=== PATIENT | female | born 1960 | race African-American/Black ===

== ENCOUNTER → 2017-01-02 | Outpatient (CLI) | payer OTHER ==
[2015-07-19 07:26] VITALS: BP 123/75
[~2017-01-02] MED LIST: ESCITALOPRAM OX10 MG PO; ESCITALOPRAM OX20 MG PO; GADOBUTROL 7.5 MMOL/7.5 ML VIAL IV ONE; LANS15CA5 PO; LANS30CA66 PO; NAPR-677 PO; NAPR500T3 PO; PANT40TA3 PO; POTA10TA12 PO; TRIA1CAP3 PO
--- NOTE | 2017-01-02 10:25 | RAD ---
BRAIN WO/W CONTRAST Indication: Non-Hodgkin's lymphoma follow-up status post radiation and resection TECHNIQUE: Axial diffusion weighted imaging was obtained. Additional sagittal T1, axial T1, axial FLAIR, and axial T2 weighted imaging of the brain was also performed. Postcontrast T1 weighted imaging was also performed after intravenous administration of gadolinium based contrast. FINDINGS: Again noted are postsurgical changes of a left frontotemporal craniotomy. There is unchanged enhancing tissue in the extra-axial space, stable since June of 2013. No new area of enhancement is is identified either intra-axial or extra-axial. There is unchanged FLAIR signal hyperintensity deep to the craniotomy site which is stable dating back to the oldest available exam in 2012. The small lacunar infarcts are noted in the left coronal radiata and in the region of the left frontal operculum. There is also the an old infarct in the right cerebellar hemisphere. No midline shift or mass effect. Ventricles are normal in size. No acute intracranial hemorrhage. No restricted diffusion to suggest acute or recent infarct. The globes and orbits are within normal limits. There is mucosal thickening of the left maxillary sinus. Impression: Stable appearance of the brain with postoperative changes in the left frontal lobe. No new signal abnormality or evidence for recurrent tumor. There is mild left maxillary sinus disease. Electronically signed by: Canelo Watson MD (01/02/2017 10:22 AM)
== END | disposition home or self-care (01) ==
LOC: MRI 08:41
PROVIDERS: ATTEND Radiology Radiation Oncology
DX: C85.89 Other specified types of non-Hodgkin lymphoma, extranodal and solid organ sites (principal); Z92.3 Personal history of irradiation
CPT/HCPCS: 70553; A9585

== ENCOUNTER → 2018-01-07 | Outpatient (CLI) | payer OTHER ==
[2018-01-07] MEDS: GADOBUTROL 7.5 MMOL/7.5 ML VIAL IV (09:35)
== END | disposition home or self-care (01) ==
LOC: MRI 08:38
DX: C85.89 Other specified types of non-Hodgkin lymphoma, extranodal and solid organ sites (principal); I10 Essential (primary) hypertension
CPT/HCPCS: 70553; A9585

== ENCOUNTER → 2019-02-09 | Outpatient (CLI) | payer OTHER ==
[2018-06-03 11:00] VITALS: BP 143/74
[~2019-02-09] MED LIST changes: +ASPI325T11 PO; +CETI10TA16 PO; +CHOL2000 PO; -GADOBUTROL 7.5 MMOL/7.5 ML VIAL IV ONE; +GADOTERATE 7.5 MMOL/15ML VIAL. IVP ONE; +LATA2.5D3 EACHEYE; +NAPR-514 PO; -NAPR500T3 PO; -PANT40TA3 PO; +PANT40TA77 PO
--- NOTE | 2019-02-09 09:42 | RAD ---
MRI Brain with and without contrast History: Non-Hodgkin's lymphoma Technique: Multiplanar, multi sequential pre and postcontrast MR imaging was performed of the brain. Comparison: June 02, 2018 Findings: There again has been left frontal parietal craniotomy. There is again resection cavity centered in the left frontal lobe, associated degree of T2 and FLAIR hyperintense signal overall similar not associated with new enhancement. There are again foci of cystic encephalomalacia/old lacunar infarcts left basal ganglia and left frontal lobe. Ventricular size is stable, not significantly dilated. There is again mild supratentorial involutional change more greatly affecting parietal lobes. There are old lacunar infarcts of the bilateral cerebellum as seen previously also of the left thalamus. There is other mild T2 and FLAIR hyperintense signal of the supratentorial parenchyma overall unchanged. There is again extra-axial signal abnormality along the left lateral convexity underlying the craniotomy site variably hyperintense on T1 and T2 sequences on T1 sequence measuring about 4 cm AP by 1.7 cm transverse fairly similar in overall appearance, not associated with significant nodular enhancement, likely sequela of old previous hemorrhage. There is preservation major arterial flow voids the skull base. There has been lens surgery bilaterally. There is left maxillary sinus mucous retention cyst as seen previously in greatest dimension about 2.1 cm. Impression: 1. Intracranial findings are unchanged, no new abnormal intracranial enhancement. There are again postoperative findings of the left frontal lobe. There are multiple old lacunar infarcts as stated. Electronically signed by: Pramod Gonsalez MD (02/09/2019 9:40 AM) [id number]
== END | disposition home or self-care (01) ==
LOC: MRI 08:11
PROVIDERS: ATTEND Radiology Radiation Oncology
DX: J34.1 Cyst and mucocele of nose and nasal sinus (principal); Z85.72 Personal history of non-Hodgkin lymphomas
CPT/HCPCS: 70553; A9575